=== PATIENT | female | born 1995 | race Caucasian/White ===

== ENCOUNTER 2017-01-22 13:33 | Emergency (ER) | payer OTHER ==
--- NOTE | ~2017-01-22 | CR63 ---
[facility]. [facility] A Service of [facility] & [facility] RADIOLOGY TEXT RESULTS PATIENT: CHITRA SHER LOCATION: SED : [birth year] UNIT #: [id number] AGE: [address]: EDMUND CARLOS PA-C SEX: F ORDER DR: [id number] [address] [address] [id number] MR#: [id number] Acc #: [id number] NAME: CHITRA SHER : 1995 SEX: F STUDY DATE/TIME: 01/22/2017 14:18 UNIT: SED ROOM: STUDY DESCRIPTION: CR Chest 2 View Attending Physician: Edmund Carlos Pa-C Ordering Physician: Physician Non-Staff Primary Care Physician: Primary Care Physician No MEDICAL IMAGING REPORT This report is preliminary unless electronic signature is present. EXAM PA and lateral chest HISTORY Fever and cough for 1 week. FINDINGS The cardiac size and pulmonary vascularity are within normal limits. Apparent prominent perihilar markings on the PA view most likely secondary to superimposed breast soft tissue density, as there is no corresponding finding on the lateral view. No pulmonary consolidation or effusion. Relatively low lung volumes. IMPRESSION No acute findings. Dictated by... Fabiano Styles M.D. THIS IS AN ELECTRONICALLY VERIFIED REPORT Fabiano Styles M.D. at 01/23/2017 3:01 PM BARAK/guido TD: 01/23/2017 07:10 JOB #: [id number] MEDICAL IMAGING REPORT Page 1 of 1
[~2017-01-22 13:33] MED LIST: PRENATAL1 TA1 PO
[2017-01-22 13:46] LABS: INFLUENZA A NEG (NEG); INFLUENZA B NEG (NEG)
== END 2017-01-22 15:40 | disposition home or self-care (01) ==
LOC: SED 13:33
PROVIDERS: Emergency Medicine
DX: J20.9 Acute bronchitis, unspecified (principal); F17.200 Nicotine dependence, unspecified, uncomplicated
CPT/HCPCS: 71020; 87651; 87804; 99283